=== PATIENT | female | born 1985 | race Caucasian/White ===

== ENCOUNTER → 2021-03-20 18:04 | Outpatient (CLI) | payer MEDICAID, SELFPAY ==
[2021-03-20 18:22] LABS: Basophils # 0.1 K/mm3 (0-0.2); Basophils % 0.9 % (0.1-2.0); Eosinophils # 0.1 K/mm3 (0.0-0.4); Eosinophils % 1.5 % (0.1-12.0); Hematocrit 39.5 % (37.0-47.0); Lymphocytes # 2.4 K/mm3 (0.7-4.5); Lymphocytes % 42.7 % (10-50); Mean Corpuscular HGB Conc 32.8 g/dL (31.8-35.4); Mean Corpuscular Hemoglobin 30.6 pg (27.0-31.2); Mean Corpuscular Volume 93.1 fl (81-99); Mean Platelet Volume 9.7 fl (7.4-10.4); Monocytes # 0.3 K/mm3 (0.1-1.0); Monocytes % 4.7 % (1.7-9.3); Neutrophils # 2.8 K/mm3 (1.8-7.8); Neutrophils % 50.2 % (37.0-80.0); Platelet Count 346 K/mm3 (142-424); Red Blood Count 4.25 M/mm3 (4.20-5.40); Red Cell Distribution Width 12.9 % (11.5-17.5); White Blood Count 5.6 K/mm3 (4.8-10.8)
[2021-03-20 18:57] LABS: Alanine Aminotransferase 15 U/L (12-78); Albumin Level 4.1 g/dl (3.5-5.0); Albumin/Globulin Ratio 1.4 (1.1-1.8); Alkaline Phosphatase 79 U/L (38-126); Anion Gap 13.6 mEq/L (5-15); Aspartate Amino Transferase 22 U/L (14-36); Blood Urea Nitrogen 10 mg/dl (7-17); Carbon Dioxide 23 mmol/L (22.0-30.0); Chloride 107 mmol/L (98-107); Cholesterol 177 mg/dl (140-200); Estimated Glomerular Filt Rate 96 ml/min (>60); GFR (African American) 116 ML/MIN (>60); Glucose 83 mg/dl (74-100); HDL Cholesterol 60 mg/dl (40-60); Potassium 3.6 mmoL/L (3.5-5.1); Sodium 140 mmol/L (136-145); Total Protein,Serum 7.1 g/dl (6.3-8.2); Triglycerides 98 mg/dl (30-150); VLDL Cholesterol 20 mg/dL (0-40)
[2021-03-20 19:00] LABS: Bilirubin,Total 0.1 mg/dl (0.2-1.3)
[2021-03-20 19:12] LABS: 25-OH Vitamin D, Total 54.3 ng/mL (30-100)
[2021-03-20 19:13] LABS: Free T4 (Free Thyroxine) 1.55 ng/dl (0.78-2.19)
[2021-03-20 19:45] LABS: Vitamin B12 571 pg/mL (239-931)
== END ==
PROVIDERS: Visit Provider Physician Assistant
DX: E07.9 Disorder of thyroid, unspecified (principal); R53.83 Other fatigue; E66.3 Overweight; Z68.26 Body mass index [BMI] 26.0-26.9, adult
CPT/HCPCS: 80053; 80061; 82306; 82607; 84439; 84443; 85025

== ENCOUNTER → 2021-04-05 15:02 | Outpatient (CLI) | payer MEDICAID, SELFPAY ==
[2021-04-05 15:58] LABS: Basophils % 0.5 % (0.1-2.0); Eosinophils # 0.2 K/mm3 (0.0-0.4); Eosinophils % 2.5 % (0.1-12.0); Hematocrit 38.6 % (37.0-47.0); Hemoglobin 12.9 g/dL (12.2-16.2); Lymphocytes # 2.3 K/mm3 (0.7-4.5); Lymphocytes % 30.6 % (10-50); Mean Corpuscular HGB Conc 33.4 g/dL (31.8-35.4); Mean Corpuscular Hemoglobin 30.1 pg (27.0-31.2); Mean Corpuscular Volume 90.2 fl (81-99); Mean Platelet Volume 8.7 fl (7.4-10.4); Monocytes # 0.3 K/mm3 (0.1-1.0); Monocytes % 3.6 % (1.7-9.3); Neutrophils # 4.8 K/mm3 (1.8-7.8); Neutrophils % 62.8 % (37.0-80.0); Platelet Count 244 K/mm3 (142-424); Red Blood Count 4.28 M/mm3 (4.20-5.40); Red Cell Distribution Width 12.7 % (11.5-17.5); White Blood Count 7.6 K/mm3 (4.8-10.8)
[2021-04-05 16:39] LABS: Chloride 105 mmol/L (98-107); Potassium 4.2 mmoL/L (3.5-5.1); Sodium 140 mmol/L (136-145)
[2021-04-05 16:42] LABS: Alanine Aminotransferase 16 U/L (12-78); Albumin Level 4.3 g/dl (3.5-5.0); Albumin/Globulin Ratio 1.4 (1.1-1.8); Alkaline Phosphatase 78 U/L (38-126); Anion Gap 16.2 mEq/L (5-15); Aspartate Amino Transferase 32 U/L (14-36); Bilirubin,Total 0.2 mg/dl (0.2-1.3); Blood Urea Nitrogen 16 mg/dl (7-17); Carbon Dioxide 23 mmol/L (22.0-30.0); Estimated Glomerular Filt Rate 82 ml/min (>60); GFR (African American) 99 ML/MIN (>60); Globulin 3.1 g/dL (1.3-3.2); Total Protein,Serum 7.4 g/dl (6.3-8.2)
[2021-04-05 16:43] LABS: Calcium 9.6 mg/dl (8.4-10.2); Glucose 91 mg/dl (74-100)
[2021-04-05 16:47] LABS: C-Reactive Protein 12.1 mg/L (0-4)
[2021-04-05 17:07] LABS: Erythrocyte Sedimentation Rate 23 mm/hr (0-20)
[2021-04-07 10:12] LABS: RA Latex Turbid. <10.0 IU/mL (<14.0)
[2021-04-07 11:28] LABS: HIV Screen 4th Generation wRfx Non Reactive (Non Reactive); Hep A Ab, IgM Negative (Negative); Hepatitis B Core Antibody IgM Negative (Negative); Hepatitis B Surface Antigen Negative (Negative); Hepatitis C Antibody 2.7 s/co ratio (0.0-0.9)
[2021-04-07 14:17] LABS: Anti-Centromere B Antibodies <0.2 AI (0.0-0.9); Anti-DNA (DS) Ab Qn 2 IU/mL (0-9); Anti-Jo-1 <0.2 AI (0.0-0.9); Anti-Smith Antibody <0.2 AI (0.0-0.9); Antichromatin Antibodies <0.2 AI (0.0-0.9); Antiscleroderma-70 Antibodies <0.2 AI (0.0-0.9); RNP Antibodies 0.5 AI (0.0-0.9); Sjogren's Anti-SS-A <0.2 AI (0.0-0.9); Sjogren's Anti-SS-B <0.2 AI (0.0-0.9)
[2021-04-07 16:13] LABS: CK-BB 0 % (0); CK-MB 0 % (0-3); CK-MM 100 % (97-100); Creatine Kinase,Total,Serum 70 U/L (32-182); Macro Type 1 0 % (Not Observed); Macro Type 2 0 % (Not Observed)
[2021-04-08 00:06] LABS: Anti-Cyclic Citrullinated Pept 9 units (0-19)
[2021-04-08 04:51] LABS: Lupus Reflex Interpretation Comment: (.); PTT-LA 31.8 sec (0.0-51.9); dRVVT 42.8 sec (0.0-47.0)
== END ==
PROVIDERS: Visit Provider Physician Assistant
DX: M25.50 Pain in unspecified joint (principal); M79.10 Myalgia, unspecified site; R53.83 Other fatigue
CPT/HCPCS: 36415; 80053; 80074; 82550; 82552; 85025; 85613; 85651; 86140; 86200; 86225; 86235; 86431; 86618; 86703; G0432

== ENCOUNTER → 2021-04-19 14:50 | Outpatient (CLI) | payer MEDICAID, SELFPAY ==
[2021-04-19 14:53] LABS: Adenovirus,PCR Not Detected (NotDetected); Bordetella Pertussis Not Detected (NotDetected); Chlamydophila Pneumoniae, PCR Not Detected (NotDetected); Coronavirus 229E Not Detected (NotDetected); Coronavirus NL63 Not Detected (NotDetected); Coronavirus OC43 Not Detected (NotDetected); Coronovirus HKU1,PCR Not Detected (NotDetected); Human Metapneumovirus Not Detected (NotDetected); Influenza A, PCR Not Detected (NotDetected); Influenza AH1, 2009 Not Detected (NotDetected); Influenza AH1, PCR Not Detected (NotDetected); Influenza AH3,PCR Not Detected (NotDetected); Influenza B, PCR Not Detected (NotDetected); Mycoplasma Pneumoniae, PCR Not Detected (NotDetected); Parainfluenza 1, PCR Not Detected (NotDetected); Parainfluenza 2, PCR Not Detected (NotDetected); Parainfluenza 3, PCR Not Detected (NotDetected); Parainfluenza 4, PCR Not Detected (NotDetected); Respiratory Syncytial Virus Not Detected (NotDetected); Rhinovirus/Enterovirus Not Detected (NotDetected)
[2021-04-19 18:23] LABS: Coronavirus 19, PCR Detected (NotDetected)
== END ==
PROVIDERS: Visit Provider Nurse Practitioner Family
DX: U07.1 COVID-19 (principal)
CPT/HCPCS: 87581; 87632; 87798; C9803; U0003; U0005

== ENCOUNTER → 2021-06-19 07:56 | Outpatient (CLI) | payer MEDICAID, SELFPAY ==
--- NOTE | 2021-06-19 07:58 | CA_ITS ---
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: Namrata Peralta RT(R) Ht: 5 ft 5 in Wt: 160lbs BSA: 1.80 BP: 100/60 mmHg Indications: edema, dyspnea 2D Dimensions LVOT 1.86 cm (M/F) 1.5-2.5 LVEF (Rios's) 62.50 % F: 54 - 74 LV Volume 89.40 mL F: 46 - 106 LV Volume Index 49.66 mL/m2 F: 29 - 61 LA Volume 20.10 mL LA Volume Index 11.16 mL/m2 (M/F) 16-34 M-Mode Dimensions RVDd 2.41 cm (0.9-2.6) LA Diam 3.03 cm (1.9-4.0) LVDd 4.66 cm (3.5-5.7) Ao Diam 2.32 cm (2.0-3.7) LVDs 3.49 cm (3.5-5.7) IVSd 0.97 cm (0.6-1.1) PWd 0.87 cm (0.6-1.1) EF (Teich) 49.70% FS 25.10% EDV (Teich) 100.30 mL ESV (Teich) 50.50 mL LV Diastology E Decel Time 170.00 (160-240 msec) E/A Ratio 1.3 MED E' 9.80 (< 7 cm/sec) E'/MED E' Ratio 10.27 (>14) LAT E' 15.70 (<10 cm/sec) E/LAT E' Ratio 6.41 (>14) Mitral Valve MV E Max Spenser. 101.00 (40-130 cm/s) MV A Velocity 80.00 (40-130 cm/s) E/A Ratio 1.26 MV Decel. Time 170.00 (160-240 ms) MV PHT 50.00 ms Tricuspid Valve TR P. Velocity 240.00 cm/s RAP Estimate 10.00 mmHg RVSP 33.10 mmHg Left Ventricle Left atrium normal size, left ventricle normal size, there is no concentric left ventricular hypertrophy, visually estimated ejection fraction 55% with no regional wall motion abnormality, diastolic parameters are within normal range. Right Ventricle Right atrium and right ventricle are normal size and contractility. Aortic Valve Aortic valve is grossly normal, there is no aortic stenosis or aortic insufficiency. Mitral Valve Mitral valve grossly normal, there is trace mitral regurgitation. Tricuspid Valve Tricuspid grossly normal, there is trace tricuspid regurgitation, tricuspid regurgitation jet velocity is inadequate for calculation of the right ventricular systolic pressure. Pulmonic Valve Pulmonic valve is poorly visualized. Great Vessels Aortic root is normal size. Inferior vena cava normal size with normal inspiratory collapse. Pericardium No significant pericardial effusion noted. Conclusion 1. Normal left ventricular size, preserved left ventricular systolic function, visually estimated ejection fraction 55% with no regional wall motion abnormality, diastolic parameters are within normal range. 2. Trace mitral and tricuspid regurgitation. 3. No significant pericardial effusion noted. 4. Inferior vena cava normal size with normal inspiratory collapse. Electronically signed by : Constantine Nassar MD 06/19/2021 11:28:19
--- NOTE | 2021-06-19 08:38 | US_ITS ---
FINAL REPORT CLINICAL HISTORY: abdominal swelling FINDINGS: Sonographic images of the abdomen were obtained. The liver has an unremarkable appearance with normal echogenicity. There is sludge in the gallbladder. The gallbladder wall measures 2 mm which is within normal limits. There is no evidence of biliary ductal dilatation. The common hepatic duct measures 4 mm, which is within normal limits. Limited images of the pancreas are unremarkable. The spleen size is normal. The right kidney measures 9.7 cm in length. The left kidney measures 10.0 cm in length. There is normal renal echogenicity. There is no evidence of hydronephrosis. The aorta has an unremarkable appearance. Limited images of the inferior vena cava are unremarkable. IMPRESSION: Sludge in the gallbladder. Reviewed, Interpreted and Dictated by Lan Jaime III, MD Transcribed by Marina Kingsley Authenticated by Lan Jaime III, MD on 06/19/2021 12:34:[address] [facility]
== END ==
PROVIDERS: PCP Physician Assistant; Visit Provider Physician Assistant
DX: R06.00 Dyspnea, unspecified (principal); R60.9 Edema, unspecified; R19.00 Intra-abdominal and pelvic swelling, mass and lump, unspecified site
CPT/HCPCS: 76700; 93306

== ENCOUNTER → 2021-07-19 10:44 | Outpatient (CLI) | payer MEDICAID, SELFPAY | PROVIDERS: PCP Physician Assistant; Visit Provider Physician Assistant | DX: K82.8 Other specified diseases of gallbladder (principal) ==

== ENCOUNTER → 2021-07-26 19:00 | Outpatient (CLI) | payer MEDICAID, SELFPAY ==
[2021-07-26 13:20] LABS: Basophils % 0.8 % (0.1-2.0); Eosinophils # 0.3 K/mm3 (0.0-0.4); Hemoglobin 12.1 g/dL (12.2-16.2); Lymphocytes # 1.7 K/mm3 (0.7-4.5); Lymphocytes % 32.6 % (10-50); Mean Corpuscular HGB Conc 31.9 g/dL (31.8-35.4); Mean Corpuscular Volume 93.9 fl (81-99); Mean Platelet Volume 8.9 fl (7.4-10.4); Monocytes # 0.4 K/mm3 (0.1-1.0); Monocytes % 7.1 % (1.7-9.3); Neutrophils # 2.8 K/mm3 (1.8-7.8); Neutrophils % 53.4 % (37.0-80.0); Platelet Count 182 K/mm3 (142-424); Red Blood Count 4.04 M/mm3 (4.20-5.40); White Blood Count 5.2 K/mm3 (4.8-10.8)
[2021-07-26 13:37] LABS: Chloride 113 mmol/L (98-107); Sodium 140 mmol/L (136-145)
[2021-07-26 13:40] LABS: Alanine Aminotransferase 32 U/L (12-78); Albumin Level 3.4 g/dl (3.5-5.0); Albumin/Globulin Ratio 1.2 (1.1-1.8); Alkaline Phosphatase 84 U/L (38-126); Aspartate Amino Transferase 26 U/L (14-36); Bilirubin,Total 0.3 mg/dl (0.2-1.3); Blood Urea Nitrogen 11 mg/dl (7-17); Calcium 7.9 mg/dl (8.4-10.2); Carbon Dioxide 22 mmol/L (22.0-30.0); Estimated Glomerular Filt Rate 95 ml/min (>60); GFR (African American) 115 ML/MIN (>60); Globulin 2.8 g/dL (1.3-3.2); Glucose 114 mg/dl (74-100); Total Protein,Serum 6.2 g/dl (6.3-8.2)
[2021-07-26 13:47] LABS: C-Reactive Protein 22.2 mg/L (0-4)
[2021-07-26 13:52] LABS: Erythrocyte Sedimentation Rate 29 mm/hr (0-20)
[2021-07-26 13:57] LABS: T4 (Thyroxine) 11.3 ug/dl (5.53-11.0)
[2021-07-26 14:10] LABS: Thyroid Stimulating Hormone 5.46 uIU/mL (0.465-4.68)
== END ==
PROVIDERS: Visit Provider Physician Assistant
DX: E03.9 Hypothyroidism, unspecified (principal); R60.0 Localized edema; R63.5 Abnormal weight gain; K14.6 Glossodynia; R20.8 Other disturbances of skin sensation; M89.8X9 Other specified disorders of bone, unspecified site; R70.0 Elevated erythrocyte sedimentation rate; R79.82 Elevated C-reactive protein (CRP); Z79.899 Other long term (current) drug therapy
CPT/HCPCS: 80053; 84436; 84443; 85025; 85651; 86140; 87522

== ENCOUNTER → 2021-11-07 16:21 | Outpatient (CLI) | payer MEDICAID, SELFPAY ==
--- NOTE | 2021-11-07 16:26 | XR_ITS ---
PROCEDURE INFORMATION: Exam: XR Right Foot Exam date and time: 11/07/2021 4:29 PM Age: 36 years old Clinical indication: Pain; Toes; Right; Additional info: Toe pain TECHNIQUE: Imaging protocol: Radiologic exam of the Right foot. Views: 3 or more views. COMPARISON: No relevant prior studies available. FINDINGS: Bones/joints: Osseous anatomic alignment is well preserved. No acutely displaced fracture or dislocation. Joint spaces are well preserved. Soft tissues: No significant soft tissue swelling. IMPRESSION: No acute findings.
== END ==
PROVIDERS: PCP Physician Assistant; Visit Provider Nurse Practitioner Family
DX: M79.674 Pain in right toe(s) (principal)
CPT/HCPCS: 73630

== ENCOUNTER → 2022-03-01 11:41 | Outpatient (CLI) | payer MEDICAID, SELFPAY ==
[2022-03-01 14:36] LABS: Basophils % 0.3 % (0.1-2.0); Eosinophils # 0.2 K/mm3 (0.0-0.4); Eosinophils % 2.5 % (0.1-12.0); Hematocrit 37.7 % (37.0-47.0); Hemoglobin 11.5 g/dL (12.2-16.2); Lymphocytes # 1.7 K/mm3 (0.7-4.5); Lymphocytes % 27.1 % (10-50); Mean Corpuscular HGB Conc 30.6 g/dL (31.8-35.4); Mean Corpuscular Hemoglobin 28.3 pg (27.0-31.2); Mean Corpuscular Volume 92.6 fl (81-99); Mean Platelet Volume 8.6 fl (7.4-10.4); Monocytes # 0.3 K/mm3 (0.1-1.0); Monocytes % 5.2 % (1.7-9.3); Neutrophils # 4.2 K/mm3 (1.8-7.8); Neutrophils % 64.8 % (37.0-80.0); Platelet Count 255 K/mm3 (142-424); Red Blood Count 4.08 M/mm3 (4.20-5.40); Red Cell Distribution Width 12.8 % (11.5-17.5); White Blood Count 6.4 K/mm3 (4.8-10.8)
[2022-03-01 15:13] LABS: Alanine Aminotransferase 18 U/L (12-78); Albumin Level 3.8 g/dl (3.5-5.0); Albumin/Globulin Ratio 1.4 (1.1-1.8); Alkaline Phosphatase 92 U/L (38-126); Anion Gap 15.9 mEq/L (5-15); Aspartate Amino Transferase 24 U/L (14-36); Bilirubin,Total 0.2 mg/dl (0.2-1.3); Blood Urea Nitrogen 18 mg/dl (7-17); Calcium 9.2 mg/dl (8.4-10.2); Carbon Dioxide 24 mmol/L (22.0-30.0); Chloride 103 mmol/L (98-107); Cholesterol 232 mg/dl (140-200); Estimated Glomerular Filt Rate 95 ml/min (>60); GFR (African American) 115 ML/MIN (>60); Globulin 2.8 g/dL (1.3-3.2); Glucose 75 mg/dl (74-100); HDL Cholesterol 58 mg/dl (40-60); Potassium 4.9 mmoL/L (3.5-5.1); Sodium 138 mmol/L (136-145); Total Protein,Serum 6.6 g/dl (6.3-8.2); Triglycerides 179 mg/dl (30-150); VLDL Cholesterol 36 mg/dL (0-40)
[2022-03-01 15:24] LABS: Direct LDL Cholesterol 139.24 mg/dL (100-129)
[2022-03-01 15:30] LABS: 25-OH Vitamin D, Total 35.2 ng/mL (30-100); T4 (Thyroxine) 16.9 ug/dl (5.53-11.0)
[2022-03-01 15:40] LABS: Erythrocyte Sedimentation Rate 17 mm/hr (0-20)
[2022-03-01 15:43] LABS: Thyroid Stimulating Hormone 0.69 uIU/mL (0.465-4.68)
[2022-03-01 16:13] LABS: C-Reactive Protein 8.8 mg/L (0-4)
[2022-03-03 08:15] LABS: RA Latex Turbid. <10.0 IU/mL (<14.0); Thyroid Peroxidase Antibodies <8 IU/mL (0-34)
[2022-03-04 14:13] LABS: Anti-Centromere B Antibodies <0.2 AI (0.0-0.9); Anti-DNA (DS) Ab Qn 2 IU/mL (0-9); Anti-Jo-1 <0.2 AI (0.0-0.9); Anti-Smith Antibody <0.2 AI (0.0-0.9); Antichromatin Antibodies <0.2 AI (0.0-0.9); Antiscleroderma-70 Antibodies <0.2 AI (0.0-0.9); RNP Antibodies 0.5 AI (0.0-0.9); Sjogren's Anti-SS-A <0.2 AI (0.0-0.9); Sjogren's Anti-SS-B <0.2 AI (0.0-0.9)
[2022-03-05 15:09] LABS: Thyroid Stimulating Immunoglob <0.10 IU/L (0.00-0.55)
[2022-03-06 23:07] LABS: Anti-Cyclic Citrullinated Pept 3 units (0-19)
== END ==
PROVIDERS: PCP Physician Assistant; Visit Provider Physician Assistant
DX: R60.0 Localized edema (principal); R06.09 Other forms of dyspnea; E03.9 Hypothyroidism, unspecified
CPT/HCPCS: 80053; 80061; 82306; 84436; 84443; 84445; 85025; 85651; 86140; 86200; 86225; 86235; 86376; 86431

== ENCOUNTER → 2022-10-24 11:21 | Outpatient (CLI) | payer MEDICAID, SELFPAY ==
[2022-10-24 12:24] LABS: Basophils % 0.6 % (0.1-2.0); Eosinophils # 0.2 K/mm3 (0.0-0.4); Eosinophils % 3.8 % (0.1-12.0); Hematocrit 39.3 % (37.0-47.0); Hemoglobin 12.6 g/dL (12.2-16.2); Lymphocytes # 1.3 K/mm3 (0.7-4.5); Lymphocytes % 30.4 % (10-50); Mean Corpuscular HGB Conc 32.2 g/dL (31.8-35.4); Mean Corpuscular Hemoglobin 27.8 pg (27.0-31.2); Mean Corpuscular Volume 86.4 fl (81-99); Mean Platelet Volume 9.4 fl (7.4-10.4); Monocytes # 0.4 K/mm3 (0.1-1.0); Monocytes % 7.9 % (1.7-9.3); Neutrophils # 2.5 K/mm3 (1.8-7.8); Neutrophils % 57.3 % (37.0-80.0); Platelet Count 231 K/mm3 (142-424); Red Blood Count 4.55 M/mm3 (4.20-5.40); Red Cell Distribution Width 13.1 % (11.5-17.5); White Blood Count 4.4 K/mm3 (4.8-10.8)
[2022-10-24 12:54] LABS: Alanine Aminotransferase 22 U/L (12-78); Albumin Level 3.5 g/dl (3.5-5.0); Albumin/Globulin Ratio 1.3 (1.1-1.8); Alkaline Phosphatase 98 U/L (38-126); Anion Gap 12.9 mEq/L (5-15); Aspartate Amino Transferase 25 U/L (14-36); Bilirubin,Total 0.1 mg/dl (0.2-1.3); Blood Urea Nitrogen 8 mg/dl (7-17); Calcium 8.7 mg/dl (8.4-10.2); Carbon Dioxide 25 mmol/L (22.0-30.0); Chloride 107 mmol/L (98-107); Chol/HDL Ratio 4.5 (1-3.5); Cholesterol 171 mg/dl (140-200); Estimated Glomerular Filt Rate 140 ml/min (>60); GFR (African American) 169 ML/MIN (>60); Globulin 2.8 g/dL (1.3-3.2); Glucose 115 mg/dl (74-100); HDL Cholesterol 38 mg/dl (40-60); Potassium 4.9 mmoL/L (3.5-5.1); Sodium 140 mmol/L (136-145); Total Protein,Serum 6.3 g/dl (6.3-8.2); Triglycerides 160 mg/dl (30-150); VLDL Cholesterol 32 mg/dL (0-40)
[2022-10-24 13:06] LABS: C-Reactive Protein 10.5 mg/L (0-4)
[2022-10-24 13:13] LABS: Free T4 (Free Thyroxine) 0.84 ng/dl (0.78-2.19)
[2022-10-24 13:14] LABS: 25-OH Vitamin D, Total 54.5 ng/mL (30-100)
[2022-10-24 13:28] LABS: Thyroid Stimulating Hormone < 0.02 uIU/mL (0.465-4.68)
[2022-10-24 15:13] LABS: Erythrocyte Sedimentation Rate 20 mm/hr (0-20)
== END ==
PROVIDERS: PCP Physician Assistant; Visit Provider Student in an Organized Health Care Education/Training Program
DX: R60.0 Localized edema (principal); E03.9 Hypothyroidism, unspecified; E55.9 Vitamin D deficiency, unspecified; R79.82 Elevated C-reactive protein (CRP)
CPT/HCPCS: 36415; 80053; 80061; 82306; 84439; 84443; 85025; 85651; 86140

== ENCOUNTER → 2022-10-26 15:05 | Outpatient (CLI) | payer MEDICAID, SELFPAY ==
--- NOTE | 2022-10-26 15:07 | CA_ITS ---
FINAL REPORT TECHNIQUE: Graded compression, spectral analysis and ultrasound images of the venous system of the upper extremity were obtained. CLINICAL HISTORY: LUE edema, pain,NKI COMPARISON: None FINDINGS: The jugular vein, subclavian vein, axillary vein, brachial vein, cephalic vein and basilic venous system are fully compressible and demonstrate no evidence of thrombosis. IMPRESSION: No evidence of thrombosis of the venous system of the left upper extremity. Reviewed, Interpreted and Dictated by Maksim Mejia MD Transcribed by Aurora Carlos Authenticated and [facility]
== END ==
PROVIDERS: PCP Physician Assistant; Visit Provider Student in an Organized Health Care Education/Training Program
DX: R60.0 Localized edema (principal); M79.601 Pain in right arm
CPT/HCPCS: 93971

== ENCOUNTER → 2022-12-19 14:25 | Outpatient (CLI) | payer MEDICAID, SELFPAY ==
[2022-12-19 14:30] LABS: Microscopic, Urine URINE MICROSCOPIC (MICROSCOPIC)
[2022-12-19 15:00] LABS: Basophils % 0.5 % (0.1-2.0); Eosinophils # 0.2 K/mm3 (0.0-0.4); Eosinophils % 3.1 % (0.1-12.0); Hematocrit 40.6 % (37.0-47.0); Hemoglobin 13.1 g/dL (12.2-16.2); Lymphocytes # 1.8 K/mm3 (0.7-4.5); Lymphocytes % 35.6 % (10-50); Mean Corpuscular HGB Conc 32.2 g/dL (31.8-35.4); Mean Corpuscular Hemoglobin 28.2 pg (27.0-31.2); Mean Corpuscular Volume 87.4 fl (81-99); Mean Platelet Volume 8.8 fl (7.4-10.4); Monocytes # 0.2 K/mm3 (0.1-1.0); Monocytes % 4.5 % (1.7-9.3); Neutrophils # 2.9 K/mm3 (1.8-7.8); Neutrophils % 56.3 % (37.0-80.0); Platelet Count 236 K/mm3 (142-424); Red Blood Count 4.65 M/mm3 (4.20-5.40); Red Cell Distribution Width 13.1 % (11.5-17.5); White Blood Count 5.1 K/mm3 (4.8-10.8)
[2022-12-19 15:04] LABS: Appearance,Urine SL CLOUDY (Clear); Bilirubin,Urine Negative (Negative); Blood, Urine TRACE-I (Negative); Color,Urine YELLOW (Yellow); Glucose,Urine (UA) Negative (Negative); Ketones,Urine Negative (Negative); Leukocyte Esterase,Urine 3+ (Negative); Nitrate,Urine Negative (Negative); PH,Urine 6.5 (5.0-8.5); Protein,Urine Negative (Negative); Urobilinogen,Urine 0.2 EU/dl (0.2)
[2022-12-19 15:09] LABS: Hemoglobin A1C 5.6 % (4.0-6.0)
[2022-12-19 15:17] LABS: Bacteria,Urine 2+ /lpf; RBC,Urine Occasional #/hpf (0-3)
[2022-12-19 15:32] LABS: Alanine Aminotransferase 20 U/L (12-78); Albumin Level 3.9 g/dl (3.5-5.0); Albumin/Globulin Ratio 1.2 (1.1-1.8); Alkaline Phosphatase 108 U/L (38-126); Amylase 54 U/L (30-110); Anion Gap 11.9 mEq/L (5-15); Aspartate Amino Transferase 21 U/L (14-36); Bilirubin,Total 0.2 mg/dl (0.2-1.3); Blood Urea Nitrogen 12 mg/dl (7-17); Calcium 9.4 mg/dl (8.4-10.2); Carbon Dioxide 27 mmol/L (22.0-30.0); Chloride 107 mmol/L (98-107); Chol/HDL Ratio 4.8 (1-3.5); Cholesterol 177 mg/dl (140-200); Estimated Glomerular Filt Rate 95 ml/min (>60); GFR (African American) 115 ML/MIN (>60); Globulin 3.3 g/dL (1.3-3.2); Glucose 109 mg/dl (74-100); HDL Cholesterol 37 mg/dl (40-60); Lipase 29 U/L (23-300); Potassium 4.9 mmoL/L (3.5-5.1); Sodium 141 mmol/L (136-145); Total Protein,Serum 7.2 g/dl (6.3-8.2); Triglycerides 223 mg/dl (30-150); VLDL Cholesterol 45 mg/dL (0-40)
[2022-12-19 15:43] LABS: Direct LDL Cholesterol 115.71 mg/dL (100-129)
[2022-12-19 15:49] LABS: 25-OH Vitamin D, Total 48.9 ng/mL (30-100)
[2022-12-19 16:03] LABS: Thyroid Stimulating Hormone < 0.02 uIU/mL (0.465-4.68)
[2022-12-21 18:09] LABS: Tissue Transglutaminase IgA Ab <2 U/mL (0-3); Tissue Transglutaminase IgG Ab 3 U/mL (0-5)
[2022-12-25 14:17] LABS: F001-IgE Egg White <0.10 kU/L (Class 0); F002-IgE Milk <0.10 kU/L (Class 0); F003-IgE Codfish <0.10 kU/L (Class 0); F004-IgE Wheat <0.10 kU/L (Class 0); F010-IgE Sesame Seed <0.10 kU/L (Class 0); F013-IgE Peanut <0.10 kU/L (Class 0); F014-IgE Soybean <0.10 kU/L (Class 0); F024-IgE Shrimp <0.10 kU/L (Class 0); F256-IgE Walnut <0.10 kU/L (Class 0); F338-IgE Scallop <0.10 kU/L (Class 0)
== END ==
LOC: LAB 14:26
PROVIDERS: PCP Physician Assistant; Visit Provider Physician Assistant
DX: R10.13 Epigastric pain (principal); E66.9 Obesity, unspecified; Z68.30 Body mass index [BMI] 30.0-30.9, adult; Z79.899 Other long term (current) drug therapy
CPT/HCPCS: 36415; 80053; 80061; 81001; 82150; 82306; 83036; 83516; 83690; 84443; 85025; 86003; 86008; 87086; 87522; 87902

== ENCOUNTER → 2022-12-24 13:44 | Outpatient (CLI) | payer MEDICAID, SELFPAY ==
[2022-12-26 16:20] LABS: H. pylori Breath Test Negative (Negative)
== END ==
PROVIDERS: PCP Physician Assistant; Visit Provider Physician Assistant
DX: R10.13 Epigastric pain (principal)
CPT/HCPCS: 83013

== ENCOUNTER 2023-05-20 18:12 | Outpatient (CLI) | payer MEDICAID, SELFPAY ==
[2023-05-20 18:10] LABS: Basophils # 0.1 K/mm3 (0-0.2); Basophils % 1.1 % (0.1-2.0); Eosinophils # 0.1 K/mm3 (0.0-0.4); Hematocrit 43.8 % (37.0-47.0); Hemoglobin 14.7 g/dL (12.2-16.2); Lymphocytes # 1.5 K/mm3 (0.7-4.5); Lymphocytes % 31.3 % (10-50); Mean Corpuscular HGB Conc 33.6 g/dL (31.8-35.4); Mean Corpuscular Volume 92.1 fl (81-99); Mean Platelet Volume 10.5 fl (7.4-10.4); Monocytes # 0.2 K/mm3 (0.1-1.0); Monocytes % 4.9 % (1.7-9.3); Neutrophils # 2.8 K/mm3 (1.8-7.8); Neutrophils % 59.6 % (37.0-80.0); Platelet Count 240 K/mm3 (142-424); Red Blood Count 4.76 M/mm3 (4.20-5.40); Red Cell Distribution Width 12.6 % (11.5-17.5); White Blood Count 4.7 K/mm3 (4.8-10.8)
[2023-05-20 18:28] LABS: Chloride 106 mmol/L (98-107); Potassium 4.5 mmoL/L (3.5-5.1); Sodium 139 mmol/L (136-145)
[2023-05-20 18:30] LABS: Alanine Aminotransferase 21 U/L (12-78); Aspartate Amino Transferase 22 U/L (14-36); Blood Urea Nitrogen 10 mg/dl (7-17); Estimated Glomerular Filt Rate 95 ml/min (>60); GFR (African American) 115 ML/MIN (>60)
[2023-05-20 18:31] LABS: Albumin Level 3.9 g/dl (3.5-5.0); Albumin/Globulin Ratio 1.3 (1.1-1.8); Alkaline Phosphatase 100 U/L (38-126); Anion Gap 10.5 mEq/L (5-15); Bilirubin,Total 0.3 mg/dl (0.2-1.3); Calcium 8.6 mg/dl (8.4-10.2); Carbon Dioxide 27 mmol/L (22.0-30.0); Globulin 3.1 g/dL (1.3-3.2); Glucose 103 mg/dl (74-100)
[2023-05-20 18:42] LABS: C-Reactive Protein 13.4 mg/L (0-4)
[2023-05-20 18:50] LABS: Free Thyroxine Index 3.5 ug/dL (5.93-13.13); T4 (Thyroxine) 13.4 ug/dl (5.53-11.0); Triiodothryronine (T3) Uptake 26 % (23.5-40.5)
[2023-05-20 18:53] LABS: Erythrocyte Sedimentation Rate QNS mm/hr (0-20)
[2023-05-20 19:04] LABS: Thyroid Stimulating Hormone 1.49 uIU/mL (0.465-4.68)
[2023-05-22 16:25] LABS: Anti-Centromere B Antibodies <0.2 AI (0.0-0.9); Anti-DNA (DS) Ab Qn 1 IU/mL (0-9); Anti-Jo-1 <0.2 AI (0.0-0.9); Anti-Smith Antibody <0.2 AI (0.0-0.9); Antichromatin Antibodies <0.2 AI (0.0-0.9); Antiscleroderma-70 Antibodies <0.2 AI (0.0-0.9); RA Latex Turbid. <10.0 IU/mL (<14.0); RNP Antibodies 0.5 AI (0.0-0.9); Sjogren's Anti-SS-A <0.2 AI (0.0-0.9); Sjogren's Anti-SS-B <0.2 AI (0.0-0.9)
== END 2023-05-20 23:59 ==
LOC: LAB.DROPOF 18:13
PROVIDERS: PCP Physician Assistant; Visit Provider Physician Assistant
DX: R21 Rash and other nonspecific skin eruption (principal); M25.50 Pain in unspecified joint; E03.9 Hypothyroidism, unspecified
CPT/HCPCS: 80053; 84436; 84443; 84479; 85025; 86140; 86225; 86235; 86431

== ENCOUNTER 2023-08-15 18:00 | Outpatient (CLI) | payer MEDICAID, SELFPAY ==
[2023-08-15 18:33] LABS: Basophils % 0.7 % (0.1-2.0); Eosinophils # 0.2 K/mm3 (0.0-0.4); Eosinophils % 2.5 % (0.1-12.0); Hematocrit 43.6 % (37.0-47.0); Hemoglobin 13.9 g/dL (12.2-16.2); Lymphocytes # 2.3 K/mm3 (0.7-4.5); Lymphocytes % 35.3 % (10-50); Mean Corpuscular HGB Conc 31.9 g/dL (31.8-35.4); Mean Corpuscular Hemoglobin 29.6 pg (27.0-31.2); Mean Platelet Volume 9.1 fl (7.4-10.4); Monocytes # 0.4 K/mm3 (0.1-1.0); Monocytes % 5.4 % (1.7-9.3); Neutrophils # 3.7 K/mm3 (1.8-7.8); Neutrophils % 56.1 % (37.0-80.0); Platelet Count 250 K/mm3 (142-424); Red Blood Count 4.69 M/mm3 (4.20-5.40); Red Cell Distribution Width 12.7 % (11.5-17.5); White Blood Count 6.6 K/mm3 (4.8-10.8)
[2023-08-15 18:37] LABS: Alanine Aminotransferase 19 U/L (12-78); Albumin/Globulin Ratio 1.3 (1.1-1.8); Alkaline Phosphatase 98 U/L (38-126); Anion Gap 9.5 mEq/L (5-15); Aspartate Amino Transferase 21 U/L (14-36); Bilirubin,Total 0.2 mg/dl (0.2-1.3); Blood Urea Nitrogen 12 mg/dl (7-17); Calcium 9.5 mg/dl (8.4-10.2); Carbon Dioxide 28 mmol/L (22.0-30.0); Chloride 105 mmol/L (98-107); Chol/HDL Ratio 8.3 (1-3.5); Cholesterol 298 mg/dl (140-200); Estimated Glomerular Filt Rate 94 ml/min (>60); GFR (African American) 114 ML/MIN (>60); Globulin 3.1 g/dL (1.3-3.2); Glucose 115 mg/dl (74-100); HDL Cholesterol 36 mg/dl (40-60); Potassium 4.5 mmoL/L (3.5-5.1); Sodium 138 mmol/L (136-145); Total Protein,Serum 7.1 g/dl (6.3-8.2); Triglycerides 201 mg/dl (30-150); VLDL Cholesterol 40 mg/dL (0-40)
[2023-08-15 18:48] LABS: Direct LDL Cholesterol 192.55 mg/dL (100-129)
[2023-08-15 18:51] LABS: 25-OH Vitamin D, Total 43.6 ng/mL (30-100)
[2023-08-15 19:07] LABS: Thyroid Stimulating Hormone 1.17 uIU/mL (0.465-4.68)
[2023-08-15 19:26] LABS: Vitamin B12 389 pg/mL (239-931)
[2023-08-16 10:40] LABS: Hemoglobin A1C 5.7 % (4.0-6.0)
[2023-08-17 06:13] LABS: HIV Screen 4th Generation wRfx Non Reactive (Non Reactive)
[2023-08-20 09:46] LABS: Hepatitis B Surface Antigen Negative
[2023-08-20 09:47] LABS: Hep B Core Ab, Total Negative; Hep B Surface Ab, Qual Reactive
[2023-08-20 09:48] LABS: Fibrosis Score 0.04; Fibrosis Stage F0-NO FIBROSIS; Hepatitis C Antibody Reactive; Necroinflammat Activity Score 0.03
[2023-08-20 09:49] LABS: Alpha 2-Macroglobulins, Qn 215; Apolipoprotein A-1 124; Haptoglobin 225
[2023-08-20 09:50] LABS: ALT (SGPT) P5P 13; Bilirubin, Total 0.1; GGT 24
== END 2023-08-15 23:59 | disposition home or self-care (01) ==
LOC: LAB.DROPOF 08-16 09:12
PROVIDERS: PCP Physician Assistant; Visit Provider Physician Assistant
DX: Z86.19 Personal history of other infectious and parasitic diseases (principal); E03.9 Hypothyroidism, unspecified; R73.09 Other abnormal glucose; E66.9 Obesity, unspecified; Z68.32 Body mass index [BMI] 32.0-32.9, adult; Z11.4 Encounter for screening for human immunodeficiency virus [HIV]
CPT/HCPCS: 80053; 80061; 81596; 82306; 82607; 83036; 84443; 85025; 86703; 86704; 86706; 87340; 87380; 87522; G0432